=== PATIENT | male | born 1980 | race Two or more races ===

== ENCOUNTER 2017-08-29 02:43 | Emergency (ER) | payer OTHER ==
[2017-08-29] MEDS ORDERED: NS 1,000 ML IV ONE (02:53)
[2017-08-29] MEDS ORDERED: FAMOTIDINE 20 MG/2 ML SDV IVP ONE (02:54)
[2017-08-29] MEDS ORDERED: methylPREDNISolone SOD SUCC 125 MG/2 ML VIAL IVP ONE (02:54)
--- NOTE | 2017-08-29 03:00 | EDPHY ---
H & P Stated Complaint: allergy to pollen Time Seen by Provider: 08/29/17 02:58 HPI/ROS: HPI CHIEF COMPLAINT: Itchy eyes, periorbital swelling, allergic reaction HISTORY OF PRESENT ILLNESS: Patient very pleasant 37-year-old male, he is otherwise healthy does not take any daily medications he presents emergency room with periorbital swelling, ecchymosis and itching eyes. Patient states he has had this for 4 days. Please add to be seasonal allergies her allergies to the pollen. He denies any trouble swallowing or trouble breathing. Denies vomiting. No urticaria. Decided come to the emergency room as it has gotten worse. Additionally patient reports runny nose. He did have 3 margaritas this evening, additionally he has been taking Tylenol flu and cold. Past Medical History: Denies significant medical history Past Surgical History: Denies significant surgical history Social History: Alcohol this evening, denies illicit drugs or tobacco. Family History: Noncontributory ROS REVIEW OF SYSTEMS: A comprehensive 10 point review of systems is otherwise negative aside from elements mentioned in the history of present illness. Exam Constitutional nontoxic. Vital signs stable triage nursing summary reviewed, vital signs reviewed, awake/alert. Eyes normal conjunctivae and sclera, EOMI, PERRLA. Periorbital swelling present. Chemosis present. No signs of infection. HENT posterior pharynx unremarkable uvula midline, no stridor, good air movement, normal inspection, atraumatic, moist mucus membranes, no epistaxis, neck supple/ no meningismus, no raccoon eyes. Respiratory clear to auscultation bilaterally, normal breath sounds, no respiratory distress, no wheezing. Cardiovascular rate normal, regular rhythm, no murmur, no edema, distal pulses normal. Gastrointestinal soft, non-tender, no rebound, no guarding, normal bowel sounds, no distension, no pulsatile mass. Genitourinary no CVA tenderness. Musculoskeletal no midline vertebral tenderness, full range of motion, no calf swelling, no tenderness of extremities, no meningismus, good pulses, neurovascularly intact. Skin no urticaria. pink, warm, & dry, no rash, skin atraumatic. Neurologic awake, alert and oriented x 3, AAOx3, moves all 4 extremities equally, motor intact, sensory intact, CN II-XII intact, normal cerebellar, normal vision, normal speech. Psychiatric normal mood/affect. Heme/Lymph/Immune no lymphadenopathy. Differential Diagnosis: Includes but is not limited to in a particular order seasonal allergies, allergic conjunctivitis, periorbital swelling due to allergies, allergic reaction, anaphylaxis, severe allergic reaction Medical Decision Making: Plan for this patient he appears well nontoxic he does appear to have periorbital swelling with chemosis with injected conjunctiva consistent with most likely allergic reaction. Possibly seasonal. Will give an IV, gentle IV fluids, IV Pepcid, IV Benadryl and IV Solu-Medrol. Re-evaluate. Watch for progression of allergic reaction. However symptoms been going on for 4 days. Patient most likely benefit from Zyrtec/Claritin. Re-evaluation: 0505 The patient re-examined. He is feeling much better states his itching around his eyes has resolved. His swelling has greatly improved with steroids Pepcid and Benadryl. He has seasonal allergies with pollen. Recommend Zyrtec, prednisone, recommend he does not rub his eyes. Cool compresses are fine. Additionally return emergency room if there is any worsening symptoms including worsening pain, trouble breathing, trouble swallowing or further allergic reaction type symptoms. Source: Patient - Personal History Current Tetanus/Diphtheria Vaccine: Yes Current Tetanus Diphtheria and Acellular Pertussis (TDAP): Yes Tetanus Vaccine Date: 2014 - Medical/Surgical History Hx Asthma: No Hx Chronic Respiratory Disease: No Hx Diabetes: No Hx Cardiac Disease: No Hx Renal Disease: No Hx Cirrhosis: No Hx Alcoholism: No Hx HIV/AIDS: No Hx Splenectomy or Spleen Trauma: No Other PMH: denies pmh. - Social History Smoking Status: Never smoked Constitutional: Initial Vital Signs Temperature (C) 36.6 C 08/29/17 02:51 Heart Rate 88 08/29/17 02:51 Respiratory Rate 16 08/29/17 02:51 Blood Pressure 152/101 H 08/29/17 02:51 O2 Sat (%) 95 08/29/17 02:51 O2 Delivery Mode Room Air Allergies/Adverse Reactions: pollen extracts Allergy (Verified 08/29/17 02:51) Home Medications: Medication Instructions Recorded NK [No Known Home Meds] 08/19/15 Cetirizine HCl [ZYRTEC] 10 mg PO DAILY #30 mg 08/29/17 predniSONE 60 mg PO DAILY #15 tab 06/10/18 Medical Decision Making - Data Points Laboratory Results: Laboratory Results 08/29/17 03:00 08/29/17 03:00 08/29/17 08/29/17 03:00 03:00 WBC 8.82 10^3/uL 10^3/uL (3.80-9.50) RBC 5.43 10^6/uL 10^6/uL (4.40-6.38) Hgb 16.5 g/dL g/dL (13.7-17.5) Hct 46.8 % % (40.0-51.0) MCV 86.2 fL fL (81.5-99.8) MCH 30.4 pg pg (27.9-34.1) MCHC 35.3 g/dL g/dL (32.4-36.7) RDW 12.6 % % (11.5-15.2) Plt Count 232 10^3/uL 10^3/uL (150-400) MPV 10.7 fL fL (8.7-11.7) Neut % (Auto) 55.7 % % (39.3-74.2) Lymph % (Auto) 33.1 % % (15.0-45.0) Armstrong % (Auto) 5.6 % % (4.5-13.0) Eos % (Auto) 4.4 % % (0.6-7.6) Baso % (Auto) 0.7 % % (0.3-1.7) Nucleat RBC Rel Count 0.0 % % (0.0-0.2) Absolute Neuts (auto) 4.92 10^3/uL 10^3/uL (1.70-6.50) Absolute Lymphs (auto) 2.92 10^3/uL 10^3/uL (1.00-3.00) Absolute Monos (auto) 0.49 10^3/uL 10^3/uL (0.30-0.80) Absolute Eos (auto) 0.39 10^3/uL 10^3/uL (0.03-0.40) Absolute Basos (auto) 0.06 10^3/uL 10^3/uL (0.02-0.10) Absolute Nucleated RBC 0.00 10^3/uL 10^3/uL (0-0.01) Immature Gran % 0.5 % % (0.0-1.1) Immature Gran # 0.04 10^3/uL 10^3/uL (0.00-0.10) Sodium 141 mEq/L mEq/L (135-145) Potassium 4.1 mEq/L mEq/L (3.3-5.0) Chloride 105 mEq/L mEq/L (97-110) Carbon Dioxide 17 mEq/l L mEq/l (22-31) Anion Gap 19 mEq/L H mEq/L (8-16) BUN 15 mg/dL mg/dL (7-23) Creatinine 0.7 mg/dL mg/dL (0.7-1.3) Estimated GFR > 60 Glucose 82 mg/dL mg/dL (70-100) Calcium 8.9 mg/dL mg/dL (8.5-10.4) Ethyl Alcohol 105 mg/dL H mg/dL (0-10) Medications Given: Discontinued Medications Diphenhydramine HCl (Benadryl Injection) 25 mg IVP EDNOW ONE Stop: 08/29/17 02:55 Last Admin: 08/29/17 02:57 Dose: 25 mg Famotidine (Pepcid) 20 mg IVP EDNOW ONE Stop: 08/29/17 02:55 Last Admin: 08/29/17 02:57 Dose: 20 mg Sodium Chloride (Ns) 1,000 mls @ 0 mls/hr IV EDNOW ONE; Wide Open PRN Reason: Protocol Stop: 08/29/17 02:54 Last Admin: 08/29/17 02:57 Dose: 1,000 mls Methylprednisolone Sodium Succinate (Solu-Medrol) 125 mg IVP EDNOW ONE Stop: 08/29/17 02:55 Last Admin: 08/29/17 02:56 Dose: 125 mg Departure - Departure Disposition: Home, Routine, Self-Care Clinical Impression: Pollen allergies Condition: Good Instructions: Allergies (ED) Additional Instructions: 1. Please return emergency room if you have worsening symptoms includes trouble breathing, trouble swallowing 2. Refrain from pollen exposure as much as possible 3. Medications as prescribed 4. Return if worse. Referrals: NONE *PRIMARY CARE P,. [Primary Care Provider] - As per Instructions Prescriptions: Cetirizine HCl [ZYRTEC] 10 mg PO DAILY #30 mg predniSONE 60 mg PO DAILY #15 tab
[2017-08-29 03:14] LABS: PLATELET COUNT 232 10^3/uL (150-400)
[2017-08-29 05:13] VITALS: BP 133/87
== END 2017-08-29 05:14 | disposition home or self-care (01) ==
DX: J30.1 Allergic rhinitis due to pollen (principal); E86.9 Volume depletion, unspecified
CPT/HCPCS: 96374; G0480; J1200; J2930